=== PATIENT | female | born 2000 | race Caucasian/White ===

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

== ENCOUNTER 2022-07-29 01:25 | Emergency (ER) | payer BC, SELFPAY ==
[2022-07-29 01:30] VITALS: BP 118/74; PULSE 85; RESP 14; TEMP 36.8; O2SAT 100; BMI 23.4
--- NOTE | 2022-07-29 02:14 | CT_ITS ---
INDICATION: syncope EXAMINATION: CT BRAIN - CT Head or Brain W/O Contrast Injection TECHNIQUE: Multiple axial images were obtained of the head without intravenous contrast. A radiation dose optimization technique was used for this scan. IV Contrast dosage and agent: None. COMPARISON: FINDINGS: BRAIN PARENCHYMA: No intra- or extra-axial hemorrhage. No evidence of acute infarct. No intracranial mass or mass effect. There is preservation of the henley/white matter interface. Posterior fossa structures are unremarkable. There is small hypoattenuation lesion in the white matter adjacent to the head of the left caudate nucleus. CSF SPACES: Appropriate for age. No hydrocephalus. Basal cisterns are patent. CALVARIUM, SKULL BASE, PARANASAL SINUSES AND MASTOID AIR CELLS: Clear. No discrete lytic or blastic abnormalities. ORBITS: Both globes, extraocular muscles, optic nerves and retrobulbar fat appear unremarkable. ASPECTS Score for Acute Strokes: 10 CT/Brain/Head without Contrast IMPRESSION: There is small nonspecific hypoattenuation lesion in the white matter adjacent to the head of the left caudate nucleus may represent a microvascular ischemic lesion or an old traumatic lesion. Further evaluation by MRI may be warranted for further characterization. There is no acute intracranial abnormality. There is no intracranial hemorrhage. Electronically Signed: Miguel Arce MD at 3:33 EST ,
--- NOTE | 2022-07-29 02:14 | EKG12_ITS ---
Test Reason : DYSRHYTHMIA Blood Pressure : / mmHG Vent. Rate : 082 BPM Atrial Rate : 082 BPM P-R Int : 126 ms QRS Dur : 074 ms QT Int : 374 ms P-R-T Axes : 063 079 059 degrees QTc Int : 436 ms Normal sinus rhythm Normal ECG Confirmed by AIXA RAYMUNDO, HARDY ([id number]), editor in chief DANIEL VELAZQUEZ ([id number]) on 07/29/2022 1:52:54 PM Referred By: NITHIN Confirmed By:HARDY KRUSE MD
[2022-07-29 02:38] LABS: Absolute Lymphocyte Count 1.23 X10^3/uL (0.83-4.51); Absolute Neutrophil Count 4.8 X10^3/uL (2.0-7.7); Basophil# 0.03 X10^3/uL; Basophil% 0.4 % (0-1); Eosinophil# 0.17 X10^3/uL; Eosinophils% 2.5 % (0-5); Hematocrit 39.7 % (37-47); Hemoglobin 12.6 g/dL (12.0-15.0); Lymphocyte # 1.23 X10^3/ul (0.83-4.51); Lymphocyte % 17.9 % (19-41); Mean Corp Hgb Conc 31.7 g/dL (32-36); Mean Corpuscular Hgb 27.6 pg (27.0-32.0); Mean Corpuscular Volume 87.1 fL (81-99); Monocyte# 0.61 X10^3/uL; Monocyte% 8.9 % (0-10); NRBC Flagged by Analyzer 0 % (0-5); Neutrophil # 4.83 X10^3/uL (2.7-7.7); Platelet Count 280 K/mm3 (150-450); RBC Distribution Width SD 40.9 fl (35.1-43.9); Red Blood Count 4.56 M/mm3 (4.2-5.4); White Blood Count 6.9 K/mm3 (4.4-11.0)
[2022-07-29 02:56] LABS: Anion Gap 8 (5-15); BUN 8 mg/dL (7-18); BUN/Creat Ratio 10.1 RATIO (10-20); Calcium,Total 8.8 mg/dL (8.5-10.1); Chloride 107 mmol/L (98-107); Creatinine, Serum 0.79 mg/dL (0.55-1.02); EST Glomerular Filtration Rate 97 mL/min (>60); Est Glom Filt Rate - Afr Amer 118 mL/min (>60); Estimated Creatinine Clearance 106.34 ml/min; Glucose 99 mg/dL (74-106); Internal QC Validated? YES +Cl - CLEAR BKGD; Magnesium 1.9 mg/dL (1.6-2.6); Potassium 3.6 mmol/L (3.5-5.1); Pregnancy, Serum, hCG Quali. NEGATIVE Negative; Sodium Level 141 mmol/L (136-145)
[2022-07-29] MEDS: 0.9% Normal Saline 1,000 ML 999 ML IV (03:03)
[2022-07-29 03:06] LABS: Lactic Acid 1.1 mmol/L (0.4-1.9)
--- NOTE | 2022-07-29 04:19 | EDS_ITS ---
HPI History of Present Illness Chief Complaint: Seizure Narrative Narrative: Patient is a 21-year-old female with no reported past medical history. She was at work this evening and reportedly was feeling lightheaded and weak. Next thing she remembers is waking up on the EMS cot. Reportedly there was some twitching that occurred when the patient was unresponsive and there was concern for possible seizure. Patient denies any past medical history of seizure disorder or family history of seizure disease. EMS states that there was no postictal phase and patient states when she awoke she knew who she was and where she was at just unsure why she was on EMS cot. She states there has been no excessive stimulant use or illicit drug use. She denies taking any new medications. Her any complaint at this time is lower extremity pain with concern for seizure versus syncope she was brought in for evaluation. [facility] Medical History no medical history Home Medications fluoxetine 40 mg capsule 30 mg PO DAILY 07/29/22 [History Last Taken Unknown] Allergy/AdvReac Type Severity Reaction Status Date / Time No Known Allergies Allergy Verified 07/13/19 14:58 Surgical History no surgical history Social History Smoking Status: Never smoker ROS ROS ED Constitutional Constitutional ED: Denies chills or fever(s) Eyes Eyes: Denies change in vision ENT ENT ED: Denies sore throat Cardiovascular Cardiovascular: Reports other Details: Positive syncope ; Denies chest pain, palpitations or racing heartbeat Respiratory/Chest Respiratory/Chest: Denies cough or dyspnea Gastrointestinal Gastrointestinal: Denies abdominal pain, diarrhea, nausea or vomiting Genitourinary Genitourinary ED: Denies dysuria or hematuria Musculoskeletal Musculoskeletal: Reports other Details: Positive bilateral leg pain ; Denies myalgias Integumentary Denies Abrasions or rash Neurologic Neurologic: Reports other Details: Questionable seizure ; Denies headache(s) or paresthesias Hematologic/Lymphatic Hematologic/Lymphatic: Denies easy bleeding or easy bruising EXAM Physical Exam Const Vital Signs: 07/29/22 01:30 Temperature 98.3 F Temperature Source Oral Pulse Rate 85 Respiratory Rate 14 Blood Pressure 118/74 Blood Pressure Mean 88 Pulse Ox 100 Oxygen Delivery Method Room Air Positive well nourished and well developed General Appearance ED: well developed HEENT Reports moist mucous membranes HEENT Narrative: No tongue or cheek biting noted Head is normocephalic and atraumatic Eyes PERRL and EOMs intact bilaterally Neck supple Neck Narrative: No bony deformity or step-off of the cervical spine no midline pain with palpation Chest Wall palpation of chest normal Resp normal respiratory effort and clear to auscultation bilaterally Cardio regular rate and regular rhythm Rate: other Other Details: Radial pulses are plus 2 out of 4 bilaterally are equal and symmetric GI normal to inspection, nondistended, normoactive bowel sounds, non-tender, non- distended and no masses Auscultation: normoactive bowel sounds Palpation: soft Back/Spine Back/Spine Narrative: No bony deformity or step-off of the thoracic or lumbar spine no midline pain on palpation. No saddle anesthesia. Negative straight leg raise. No clonus or Babinski. Patellar reflexes are plus 2 out of 4 bilaterally are equal and symmetric Extremity normal to inspection Extremity Narrative: Patient has increased pain with active range of motion of both lower extremities but there is no bony deformity or joint effusion noted. Neuro oriented x3, CN's II-XII intact bilaterally and no sensory deficits noted Neuro Narrative: Cranial nerves II through XII are grossly intact there is no focal neurologic deficit. No pronator drift no dysmetria no truncal ataxia. NIH stroke scale score of 0 Sensorium / Orientation: alert Psych mental status grossly normal Skin no rashes or lesions noted Skin Narrative: No abrasions or ecchymosis noted MDM MDM MDM Narrative Medical decision making narrative: Patient presented to the ER awake alert and oriented with normal neurologic exam and no signs of head injury associated with the fall/syncopal event. Patient had no tongue or cheek biting either and therefore was felt that patient most likely under had a syncopal event instead of seizure. Based on this differential however basic blood work was obtained as well as a noncontrast head CT. Labs revealed no clinically significant findings such as acute kidney injury or electrolyte derangement. Lactic acid is normal going against active seizure activity. The patient's head CT questioned a hyperattenuation lesion near the caudate nucleus. It is unsure if this is just summation of shadows or artifact from an old injury or something else and therefore recommends an MRI. I informed the patient of the questionable head CT read and recommended we hold her in the ER until morning and we can perform an MRI to ensure that this questionable head CT finding is benign. Patient states that as the rest of her work-up is normal and that she feels perfectly fine at this time she does not want to stay in the hospital and have this performed. She states she will follow-up with her family doctor and discuss an MRI and an outpatient basis if there is any further concern. The patient is awake alert oriented and competent to make this decision and therefore as she wishes to leave the hospital prior to receiving her MRI she will be discharged at this time Lab Data Attestation: I reviewed the patient's lab results. Labs: Laboratory Results - last 24 hr 07/29/22 07/29/22 07/29/22 02:28 02:28 02:28 WBC 6.9 RBC 4.56 Hgb 12.6 Hct 39.7 MCV 87.1 MCH 27.6 MCHC 31.7 L RDW Std Deviation 40.9 RDW Coeff of Maddie 13.0 Plt Count 280 MPV 9.0 Immature Gran % (Auto) 0.300 Neut % (Auto) 70.0 Lymph % (Auto) 17.9 L [place] % (Auto) 8.9 Eos % (Auto) 2.5 Baso % (Auto) 0.4 Absolute Neuts (auto) 4.8 Absolute Lymphs (auto) 1.23 Nucleated RBC % 0 Sodium 141 Potassium 3.6 Chloride 107 Carbon Dioxide 26.0 Anion Gap 8 BUN 8 Creatinine 0.79 Estim Creat Clear Calc 106.34 Est GFR (MDRD) Af Amer 118 Est GFR (MDRD) Non-Af 97 BUN/Creatinine Ratio 10.1 Glucose 99 Lactic Acid Calcium 8.8 Magnesium 1.9 Serum , Qual NEGATIVE 07/29/22 02:28 WBC RBC Hgb Hct MCV MCH MCHC RDW Std Deviation RDW Coeff of Maddie Plt Count MPV Immature Gran % (Auto) Neut % (Auto) Lymph % (Auto) [place] % (Auto) Eos % (Auto) Baso % (Auto) Absolute Neuts (auto) Absolute Lymphs (auto) Nucleated RBC % Sodium Potassium Chloride Carbon Dioxide Anion Gap BUN Creatinine Estim Creat Clear Calc Est GFR (MDRD) Af Amer Est GFR (MDRD) Non-Af BUN/Creatinine Ratio Glucose Lactic Acid 1.1 Calcium Magnesium Serum , Qual Radiography Diagnostic Testing: Clinical Impression(s) from Imaging Studies Brain CT 07/29/22 02:14 IMPRESSION: There is small nonspecific hypoattenuation lesion in the white matter adjacent to the head of the left caudate nucleus may represent a microvascular ischemic lesion or an old traumatic lesion. Further evaluation by MRI may be warranted for further characterization. There is no acute intracranial abnormality. There is no intracranial hemorrhage. Electronically Signed: Miguel Arce MD at 3:33 EST , Discharge Plan Triage Chief Complaint: Seizure ED Provider: Andrzej Christianson Dx/Rx/DC Orders Clinical Impression: Syncope and collapse, Abnormal CT of the head Instructions: ED Fainting, Uncertain Cause Prescriptions: No Action fluoxetine 40 mg Capsule 30 mg PO DAILY Primary Care Provider: Jose Pastor Referrals: Jose Pastor MD [Primary Care Provider] - Activity Restrictions/Additional Instructions: Please follow-up with your family doctor to discuss possible outpatient MRI as the CAT scan did question a lesion near the caudate nucleus. If you have any worsening of symptoms or further concerns please return to the ER for repeat evaluation Disposition Disposition: Home, Self Care Discharge Date/Time: 07/29/22 05:08
[2022-07-29 04:47] VITALS: O2SAT 98
[2022-07-29 04:50] VITALS: BP 124/68; PULSE 74; RESP 15; O2SAT 97
== END 2022-07-29 05:08 | disposition home or self-care (01) ==
PROVIDERS: Emergency Provider Emergency Medicine; PCP Family Medicine; Visit Provider Emergency Medicine
DX: R55 Syncope and collapse (principal); R93.0 Abnormal findings on diagnostic imaging of skull and head, not elsewhere classified; M79.606 Pain in leg, unspecified; Z79.899 Other long term (current) drug therapy
CPT/HCPCS: 70450; 80048; 83605; 83735; 84703; 85025; 93005; 96360; 96361; 99285; J7030; A4216

== ENCOUNTER 2022-08-06 00:07 | Emergency (ER) | payer BC, SELFPAY ==
[2022-08-06 00:08] VITALS: BP 104/90; PULSE 71; RESP 14; TEMP 36.6; O2SAT 100; BMI 24.0
--- NOTE | 2022-08-06 00:56 | RAD_ITS ---
INDICATION: chest pain EXAMINATION/TECHNIQUE: X-RAY - XR Chest 2 Views COMPARISON: 07/13/2019. FINDINGS: LINES/DEVICES: None. LUNGS: No consolidation. No pneumothorax. MEDIASTINUM: Unremarkable. CARDIAC SILHOUETTE: Not enlarged. BONES AND SOFT TISSUES: No acute abnormalities. RAD/Chest PA and Lateral IMPRESSION: Normal chest x-ray. Electronically Signed: Milvia Nice MD at 1:25 EST ,
--- NOTE | 2022-08-06 00:56 | EKG12_ITS ---
Test Reason : CP Blood Pressure : / mmHG Vent. Rate : 063 BPM Atrial Rate : 063 BPM P-R Int : 134 ms QRS Dur : 076 ms QT Int : 402 ms P-R-T Axes : 041 069 060 degrees QTc Int : 411 ms Normal sinus rhythm Normal ECG Confirmed by AIXA RAYMUNDO, HARDY ([id number]), marketing editor DANIEL VELAZQUEZ ([id number]) on 08/07/2022 12:40:15 PM Referred By: Confirmed By:HARDY KRUSE MD
[2022-08-06 01:05] LABS: Absolute Lymphocyte Count 2.26 X10^3/uL (0.83-4.51); Absolute Neutrophil Count 5.7 X10^3/uL (2.0-7.7); Basophil# 0.04 X10^3/uL; Basophil% 0.4 % (0-1); Eosinophil# 0.24 X10^3/uL; Eosinophils% 2.7 % (0-5); Hematocrit 44.8 % (37-47); Hemoglobin 14.3 g/dL (12.0-15.0); Lymphocyte # 2.26 X10^3/ul (0.83-4.51); Lymphocyte % 25.1 % (19-41); Mean Corp Hgb Conc 31.9 g/dL (32-36); Mean Corpuscular Hgb 27.6 pg (27.0-32.0); Mean Corpuscular Volume 86.5 fL (81-99); Mean Platelet Vol. 9.5 fl (6.2-12.0); Monocyte# 0.71 X10^3/uL; Monocyte% 7.9 % (0-10); NRBC Flagged by Analyzer 0 % (0-5); Neutrophil # 5.74 X10^3/uL (2.7-7.7); Neutrophil % 63.7 % (47-70); Platelet Count 343 K/mm3 (150-450); RBC Distribution Width CV 12.9 % (11.6-14.6); RBC Distribution Width SD 40.5 fl (35.1-43.9); Red Blood Count 5.18 M/mm3 (4.2-5.4)
[2022-08-06 01:17] LABS: D-Dimer Quantitative (DVT/PE) 0.29 FEU/ug/m (0.27-0.49)
[2022-08-06 01:26] LABS: Anion Gap 9 (5-15); BUN 12 mg/dL (7-18); BUN/Creat Ratio 14.7 RATIO (10-20); Calcium,Total 9.7 mg/dL (8.5-10.1); Chloride 105 mmol/L (98-107); Creatinine, Serum 0.82 mg/dL (0.55-1.02); EST Glomerular Filtration Rate 95 mL/min (>60); Est Glom Filt Rate - Afr Amer 114 mL/min (>60); Estimated Creatinine Clearance 98.48 ml/min; Glucose 95 mg/dL (74-106); Magnesium 2.1 mg/dL (1.6-2.6); Potassium 3.9 mmol/L (3.5-5.1); Sodium Level 140 mmol/L (136-145); Troponin-I HS < 3 pg/mL (3.0-54.0)
[2022-08-06 01:45] VITALS: BP 118/69; PULSE 74; RESP 13
--- NOTE | 2022-08-06 02:05 | EX.ED.DYSGE1 ---
HPI History of Present Illness Chief Complaint: Chest Pain Narrative Narrative: Patient is a 21-year-old female who states she went to work this evening and once they are started doing her normal job. She states while she was doing this she had anterior chest pain that made her feel short of breath. She states she was able to sit down and the pain resolved but then she got up and began doing her job once again and the pain returned. She states that there is been no nausea vomiting diaphoresis associated with this. She denies any recent coughing spells or trauma. She denies any recent travel, surgery or history of DVT/PE. She also denies any history of cardiac disease at a young age and she denies any excessive stimulant use or illicit drug use. However with 2 episodes of chest discomfort occurring at work this evening she presents for evaluation [facility] Home Medications fluoxetine 40 mg capsule 30 mg PO DAILY 07/29/22 [History Last Taken Unknown] norethindrone (contraceptive) 0.35 mg tablet 0.35 mg PO DAILY 08/06/22 [History Last Taken Unknown] Allergy/AdvReac Type Severity Reaction Status Date / Time No Known Allergies Allergy Verified 08/06/22 00:13 Social History Smoking Status: Never smoker [facility] ED Constitutional Constitutional ED: Denies chills or fever(s) ENT ENT ED: Denies sore throat Cardiovascular Cardiovascular: Reports chest pain; Denies palpitations or racing heartbeat Respiratory/Chest Respiratory/Chest: Denies cough or dyspnea Gastrointestinal Gastrointestinal: Denies abdominal pain, diarrhea, nausea or vomiting Genitourinary Genitourinary ED: Denies dysuria Musculoskeletal Musculoskeletal: Denies back pain, myalgias or neck pain Integumentary Denies rash Neurologic Neurologic: Denies headache(s) Hematologic/Lymphatic Hematologic/Lymphatic: Denies easy bleeding or easy bruising EXAM Physical Exam Const Vital Signs: 08/06/22 00:08 08/06/22 00:08 08/06/22 01:45 Temperature 97.9 F Temperature Source Temporal Pulse Rate 71 74 Respiratory Rate 14 13 Respiratory Effort Normal Blood Pressure 104/90 H 118/69 Blood Pressure Mean 94 85 Pulse Ox 100 Oxygen Delivery Method Room Air Room Air 08/06/22 02:10 Temperature Temperature Source Pulse Rate 74 Respiratory Rate Respiratory Effort Blood Pressure 112/79 Blood Pressure Mean Pulse Ox 95 Oxygen Delivery Method Positive well nourished and well developed General Appearance ED: well developed HEENT Reports moist mucous membranes Eyes PERRL and EOMs intact bilaterally Neck supple Chest Wall Chest Narrative: No bony deformity or crepitance of the anterior chest wall with there is reproducible pain with palpation that patient states is the same pain she was experiencing at work Resp normal respiratory effort and clear to auscultation bilaterally Cardio regular rate and regular rhythm Rate: other Other Details: Radial pulses are plus 2 out of 4 bilaterally are equal and symmetric GI normal to inspection, nondistended, normoactive bowel sounds, non-tender and non-distended GI Narrative: No voluntary guarding or rigidity no pulsatile mass Auscultation: normoactive bowel sounds Palpation: soft Extremity normal to inspection Extremity Narrative: No asymmetric edema no pitting edema negative Homans' sign bilaterally Neuro oriented x3 and CN's II-XII intact bilaterally Sensorium / Orientation: alert Psych mental status grossly normal Skin no rashes or lesions noted MDM MDM MDM Narrative Medical decision making narrative: Patient presented to the ER with spontaneous resolution of her symptoms and is low risk for DVT/PE as well as cardiac event. However because of the symptoms occurring twice tonight at work I did elect to perform a basic cardiac work-up. Labs revealed no clinically significant findings with normal D-dimer going against blood clot as well as normal troponin going against cardiac event. Patient's EKG also showed no signs of dysrhythmia and chest x-ray revealed no signs of lung pathology as a cause of her symptoms. As patient is low risk for cardiac event or DVT/PE and work-up is negative I feel this is most likely musculoskeletal as it is reproducible in nature. Therefore patient is safe for discharge and can take anti-inflammatories and follow-up on an outpatient basis Lab Data Attestation: I reviewed the patient's lab results. Labs: Laboratory Results - last 24 hr 08/06/22 08/06/22 08/06/22 00:30 00:30 00:30 WBC 9.0 RBC 5.18 Hgb 14.3 Hct 44.8 MCV 86.5 MCH 27.6 MCHC 31.9 L RDW Std Deviation 40.5 RDW Coeff of Maddie 12.9 Plt Count 343 MPV 9.5 Immature Gran % (Auto) 0.200 Neut % (Auto) 63.7 Lymph % (Auto) 25.1 [place] % (Auto) 7.9 Eos % (Auto) 2.7 Baso % (Auto) 0.4 Absolute Neuts (auto) 5.7 Absolute Lymphs (auto) 2.26 Nucleated RBC % 0 D-Dimer Quant (PE/DVT) 0.29 Sodium 140 Potassium 3.9 Chloride 105 Carbon Dioxide 26.0 Anion Gap 9 BUN 12 Creatinine 0.82 Estim Creat Clear Calc 98.48 Est GFR (MDRD) Af Amer 114 Est GFR (MDRD) Non-Af 95 BUN/Creatinine Ratio 14.7 Glucose 95 Calcium 9.7 Magnesium 2.1 Troponin I High Sens < 3 L Radiography Diagnostic Testing: Clinical Impression(s) from Imaging Studies Chest X-Ray 08/06/22 00:56 IMPRESSION: Normal chest x-ray. Electronically Signed: Milvia Nice MD at 1:25 EST , Chest x-ray as interpreted by the emergency medicine physician reveals no acute infiltrate pneumothorax or pleural effusion Discharge Plan Triage Chief Complaint: Chest Pain ED Provider: Andrzej Christianson Dx/Rx/DC Orders Clinical Impression: Chest wall pain Instructions: ED Chest Wall Pain, Costochondritis, ED Chest Wall Strain Prescriptions: No Action fluoxetine 40 mg Capsule 30 mg PO DAILY norethindrone (contraceptive) 0.35 mg tablet 0.35 mg PO DAILY Label Comments: TAKE 1 TABLET BY MOUTH EVERY DAY Stand Alone Forms: Work / School Excuse Primary Care Provider: Jose Pastor Referrals: Jose Pastor MD [Primary Care Provider] - Activity Restrictions/Additional Instructions: Please take anti-inflammatories to help with your chest wall pain and return to the ER should you have any further concerns Disposition Disposition: Home, Self Care Discharge Date/Time: 08/06/22 02:17
[2022-08-06 02:10] VITALS: BP 112/79; PULSE 74; O2SAT 95
== END 2022-08-06 02:17 | disposition home or self-care (01) ==
PROVIDERS: Emergency Provider Emergency Medicine; PCP Family Medicine; Visit Provider Emergency Medicine
DX: R07.89 Other chest pain (principal)
CPT/HCPCS: 71046; 80048; 83735; 84484; 85025; 85379; 93005; 99282

== ENCOUNTER 2023-02-24 18:14 | Emergency (ER) | payer BC, MEDICAID, SELFPAY ==
[2023-02-24 18:15] VITALS: BP 114/72; PULSE 93; RESP 14; TEMP 36.4; O2SAT 100; BMI 24.6
[2023-02-24 19:06] VITALS: BP 110/75; BP 111/68; BP 114/74; PULSE 78; PULSE 80; PULSE 91
--- NOTE | 2023-02-24 19:06 | EKG12_ITS ---
Test Reason : DIZZY Blood Pressure : / mmHG Vent. Rate : 079 BPM Atrial Rate : 079 BPM P-R Int : 134 ms QRS Dur : 076 ms QT Int : 354 ms P-R-T Axes : 031 079 018 degrees QTc Int : 405 ms Normal sinus rhythm Nonspecific T wave abnormality Abnormal ECG Confirmed by WHIT RAYMUNDO, MARGOT ([id number]), assignment editor MIGUEL DAVID ([id number]) on 02/25/2023 1:15:47 PM Referred By: Confirmed By:MARGOT SHERMAN MD
--- NOTE | 2023-02-24 19:06 | EDS_ITS ---
HPI History of Present Illness Chief Complaint: Syncope Narrative Narrative: 22-year-old female who denies significant past medical history except for the fact that she is 6 weeks , G1, P0 presents after syncopal episode at work today. She states that she works at [employer], and was on a machine. She had eaten soup half an hour before her shift started at around 325 pm, almost 4 hours ago. She states that the last thing she remembered was that her friend was standing further on down the line, and she loads the machine, she felt lightheaded but denies any prodromal chest pain or shortness of breath. The next thing she woke up she was on the ground. She had reportedly only had a syncopal episode for few minutes. She denies any vaginal bleeding, abdominal pain, or other symptoms. While she may have struck the right side of her head, she denies any neck pain, and she does not take blood thinners. PFSH PFSH Medical History no medical history Allergy/AdvReac Type Severity Reaction Status Date / Time No Known Allergies Allergy Verified 02/24/23 18:19 Surgical History no surgical history Social History Smoking Status: Never smoker ROS ROS ED ROS Narrative Constitutional: No fever, no chills. HEENT: No sore throat. No neck pain. No loss of vision. No rhinorrhea. Cardiovascular: No chest pain. No palpitations. No pedal edema. Respiratory: No cough, no shortness of breath. Abdominal: No abdominal pain. No nausea. No vomiting. Genitourinary: No dysuria. No hematuria. No vaginal bleeding, no pelvic pain. Musculoskeletal: No myalgias. No arthralgias. Neurologic: No headaches. No dizziness. Positive lightheadedness. Vital signs resulted in syncopal episode for a few minutes. Skin: No rash. No change in color. Psychiatric: No depression. No anxiety. EXAM Physical Exam Narrative Exam Narrative: Afebrile. Vital signs noted. HEENT: Normocephalic. Atraumatic. PERRL, EOMI. Neck soft and supple. No point tenderness or step off. Cardiovascular: Regular rate and rhythm. No murmurs, rubs, or gallops appreciated. Respiratory: No tachypnea. Lungs clear to auscultation bilaterally. Gastrointestinal: Abdomen soft, nontender, with normoactive bowel sounds. No rebound or guarding. Neurological: Awake. Alert. Oriented x3. Nonfocal, nonlateralizing. Able to raise arms above head without difficulty. Skin: No rash. Normal color. No pallor. Musculoskeletal: No pedal edema. Full range of motion extremities. Const Vital Signs: 02/24/23 18:15 02/24/23 18:20 02/24/23 19:06 Temperature 97.5 F L Temperature Source Temporal Pulse Rate 93 Pulse Rate [Lying] 80 Pulse Rate [Sitting (for 1 minute prior to obtaining)] 78 Pulse Rate [Standing (for 1 minute prior to obtaining)] 91 Respiratory Rate 14 Respiratory Effort Normal Non-Labored Respiratory Pattern Normal Blood Pressure 114/72 Blood Pressure [Lying] 111/68 Blood Pressure [Sitting (for 1 minute prior to obtaining)] 114/74 Blood Pressure [Standing (for 1 minute prior to obtaining)] 110/75 Blood Pressure Mean 86 Blood Pressure Mean [Lying] 82 Blood Pressure Mean [Sitting (for 1 minute prior to obtaining)] 87 Blood Pressure Mean [Standing (for 1 minute prior to obtaining)] 86 Pulse Ox 100 Oxygen Delivery Method Room Air 02/24/23 20:15 Temperature Temperature Source Pulse Rate 107 H Pulse Rate [Lying] Pulse Rate [Sitting (for 1 minute prior to obtaining)] Pulse Rate [Standing (for 1 minute prior to obtaining)] Respiratory Rate 19 H Respiratory Effort Respiratory Pattern Blood Pressure 124/69 H Blood Pressure [Lying] Blood Pressure [Sitting (for 1 minute prior to obtaining)] Blood Pressure [Standing (for 1 minute prior to obtaining)] Blood Pressure Mean 87 Blood Pressure Mean [Lying] Blood Pressure Mean [Sitting (for 1 minute prior to obtaining)] Blood Pressure Mean [Standing (for 1 minute prior to obtaining)] Pulse Ox 100 Oxygen Delivery Method Room Air MDM MDM MDM Narrative Medical decision making narrative: Concern is for vasovagal syncope versus intravascular volume depletion. She may have had transient hypoglycemia as well. Comprehensive work-up was pursued in the form of laboratory work and EKG. Orthostatics will be obtained and she will be bolused normal saline. I do not feel CT imaging of the brain or neck is indicated as I have low concern for intracranial hemorrhage based on her normal neurological examination. I do not feel that the radiation exposure is worth the risk to her unborn fetus. EKG was obtained and interpreted by myself independently as normal sinus rhythm at 79 bpm without ectopy or acute ST changes. No STEMI. QTc normal at 405. Reviewed her laboratory work from today. WBC count normal at 10.5 with hemoglobin normal at 14.0, hematocrit 42.9, platelet count normal at 335. CMP shows sodium normal at 136 with potassium 3.7, chloride normal at 104. BUN normal at 8 and creatinine 0.76. AST is normal at 22 with ALT normal at 32. Urinalysis is negative for infection. It is a contaminated specimen with 5-10 squamous epithelial cells, and I do not feel antibiotics are indicated. As she is this can be sent for culture. She did have 150 ketones and her urine which is pointing more towards intravascular volume depletion. RN did report that she had a low blood pressure systolically in the 80s. Afterwards, she was unresponsive for her parents. However, on arrival to the room, she awoke and was tearful. While her heart rate increased while she was crying, after her complete bolus was finished, upon repeat examination at 9:20 PM approximately, she feels well and would like to be discharged. I did review her prior records and she had an unresponsive episode earlier this year. I discussed with the patient and her parents that I do not feel that she requires observation at this time. Through shared decision making, I feel she can be discharged safely home with follow-up. Return instructions to the emergency department were reviewed. She was given a note to be off work today and tomorrow. Patient and parents are agreeable to the plan. Disposition is discharged home in stable condition. History & Record Review Discussion w/independent historian: Patient and Family Additional record(s) reviewed:: Prior ED visit Lab Data Attestation: I reviewed the patient's lab results. Labs: Laboratory Results - last 24 hr 02/24/23 02/24/23 18:03 20:54 WBC 10.5 RBC 4.98 Hgb 14.0 Hct 42.9 MCV 86.1 MCH 28.1 MCHC 32.6 RDW Std Deviation 40.4 RDW Coeff of Maddie 13.1 Plt Count 335 MPV 10.1 Immature Gran % (Auto) 0.300 Neut % (Auto) 72.2 H Lymph % (Auto) 18.7 L [place] % (Auto) 6.9 Eos % (Auto) 1.4 Baso % (Auto) 0.5 Absolute Neuts (auto) 7.6 Absolute Lymphs (auto) 1.97 Nucleated RBC % 0 Sodium 136 Potassium 3.7 Chloride 104 Carbon Dioxide 24.0 Anion Gap 8 BUN 8 Creatinine 0.76 Estim Creat Clear Calc 109.62 Est GFR (MDRD) Af Amer 123 Est GFR (MDRD) Non-Af 102 BUN/Creatinine Ratio 10.5 Glucose 73 L Calcium 9.6 Total Bilirubin 0.40 AST 22 ALT 32 Alkaline Phosphatase 65 Total Protein 8.1 Albumin 4.3 Globulin 3.8 Albumin/Globulin Ratio 1.1 Urine Color Yellow Urine Clarity Clear Urine pH 5.0 Ur Specific [place] 1.020 Urine Protein Negative Urine Glucose (UA) Normal Urine Ketones 150 A* Urine Occult Blood Negative Urine Nitrite Negative Urine Bilirubin Negative Urine Urobilinogen Normal Ur Leukocyte Esterase 100 H Urine RBC 0 SEEN Urine WBC 5-10 SEEN Ur Squamous Epith Cells 5-10 SEEN Urine Bacteria 1+ Urine Mucus 0 SEEN Discharge Plan Triage Chief Complaint: Syncope ED Provider: Frankie Castaneda Dx/Rx/DC Orders Clinical Impression: Syncope and collapse, Vasovagal episode Instructions: ED Hypotension, Orthostatic, ED Fainting, Vagal Reaction, ED Fainting, Uncertain Cause Stand Alone Forms: ED Work / School Excuse Primary Care Provider: Jose Pastor Referrals: Jose Pastor MD [Primary Care Provider] - 1-2 Days if not improving Disposition Disposition: Home, Self Care
[2023-02-24] MEDS: 0.9% Normal Saline (1000mL) 1,000 ML 1000 ML IV (19:12)
[2023-02-24 19:19] LABS: Absolute Lymphocyte Count 1.97 X10^3/uL (0.83-4.51); Absolute Neutrophil Count 7.6 X10^3/uL (2.0-7.7); Basophil# 0.05 X10^3/uL; Basophil% 0.5 % (0-1); Eosinophil# 0.15 X10^3/uL; Eosinophils% 1.4 % (0-5); Hematocrit 42.9 % (37-47); Lymphocyte # 1.97 X10^3/ul (0.83-4.51); Lymphocyte % 18.7 % (19-41); Mean Corp Hgb Conc 32.6 g/dL (32-36); Mean Corpuscular Hgb 28.1 pg (27.0-32.0); Mean Corpuscular Volume 86.1 fL (81-99); Mean Platelet Vol. 10.1 fl (6.2-12.0); Monocyte# 0.72 X10^3/uL; Monocyte% 6.9 % (0-10); NRBC Flagged by Analyzer 0 % (0-5); Neutrophil # 7.59 X10^3/uL (2.7-7.7); Neutrophil % 72.2 % (47-70); Platelet Count 335 K/mm3 (150-450); RBC Distribution Width CV 13.1 % (11.6-14.6); RBC Distribution Width SD 40.4 fl (35.1-43.9); Red Blood Count 4.98 M/mm3 (4.2-5.4); White Blood Count 10.5 K/mm3 (4.4-11.0)
[2023-02-24 19:37] LABS: ALB/GLOB Ratio 1.1 RATIO (0.9-2.4); AST(SGOT) 22 U/L (15-37); Alanine Aminotransfer ALT/SGPT 32 U/L (13-56); Albumin, Serum 4.3 g/dL (3.2-5.0); Alkaline Phosphatase 65 U/L (45-117); Anion Gap 8 (5-15); BUN 8 mg/dL (7-18); BUN/Creat Ratio 10.5 RATIO (10-20); Calcium,Total 9.6 mg/dL (8.5-10.1); Chloride 104 mmol/L (98-107); Creatinine, Serum 0.76 mg/dL (0.55-1.02); EST Glomerular Filtration Rate 102 mL/min (>60); Est Glom Filt Rate - Afr Amer 123 mL/min (>60); Estimated Creatinine Clearance 109.62 ml/min; Globulin 3.8 g/dL (2.2-4.2); Glucose 73 mg/dL (74-106); Potassium 3.7 mmol/L (3.5-5.1); Protein, Total 8.1 g/dL (6.4-8.2); Sodium Level 136 mmol/L (136-145)
[2023-02-24 20:15] VITALS: BP 124/69; PULSE 107; RESP 19; O2SAT 100
[2023-02-24 21:00] LABS: Mucous, Urine 0 SEEN /hpf (<or=2+); Red Blood Cells-Urine 0 SEEN /hpf (0-5)
[2023-02-24 21:01] LABS: Color, Urine Yellow (Yellow); Glucose, Dipstick Normal (Normal); Leukocyte Esterase-Dipstick 100 /ul (Negative); Nitrite-Dipstick Negative (Negative); Occult Blood-Urine Negative /ul (Negative); Protein-Dipstick Negative (Negative); Urine Bilirubin Dipstick Negative (Negative); Urine Clarity Clear (Clear); Urine Urobilinogen Normal (Normal)
[2023-02-24 21:09] LABS: Ketone-Dipstick 150 mg/dl (Negative)
[2023-02-24 21:11] LABS: Bacteria 1+ /hpf (None Seen); Squamous Epithelial Cells - UA 5-10 SEEN /hpf (5-10); White Blood Cells 5-10 SEEN /hpf (0-5)
[2023-02-24 21:19] VITALS: BP 122/69; PULSE 106; RESP 19; O2SAT 100
== END 2023-02-24 21:53 | disposition home or self-care (01) ==
PROVIDERS: Emergency Provider Emergency Medicine; PCP Family Medicine; Visit Provider Emergency Medicine
DX: O99.891 Other specified diseases and conditions complicating pregnancy (principal); R55 Syncope and collapse; Z3A.01 Less than 8 weeks gestation of pregnancy
CPT/HCPCS: 80053; 81001; 85025; 87086; 87088; 93005; 96360; 96361; 99285; J7030

== ENCOUNTER 2023-02-26 19:47 | Emergency (ER) | payer BC, MEDICAID, SELFPAY ==
[2023-02-26 19:48] VITALS: BP 118/84; PULSE 110; RESP 18; TEMP 36.7; O2SAT 98; BMI 23.6
--- NOTE | 2023-02-26 19:51 | EKG12_ITS ---
Test Reason : SYNCOPE Blood Pressure : / mmHG Vent. Rate : 095 BPM Atrial Rate : 095 BPM P-R Int : 118 ms QRS Dur : 080 ms QT Int : 320 ms P-R-T Axes : 040 081 -73 degrees QTc Int : 402 ms Normal sinus rhythm T wave abnormality, consider inferior ischemia T wave abnormality, consider anterolateral ischemia Abnormal ECG Confirmed by WHIT RAYMUNDO, MARGOT ([id number]), news assignment editor MIGUEL DAVID ([id number]) on 03/02/2023 1:55:51 PM Referred By: Confirmed By:MARGOT SHERMAN MD
[2023-02-26 21:47] VITALS: PULSE 90; RESP 16; O2SAT 98
--- NOTE | 2023-02-26 22:44 | EDS_ITS ---
HPI History of Present Illness Chief Complaint: Syncope Informant: patient Narrative Narrative: Patient had a syncopal episode at work. She was seen here 2 days ago for the same thing. Before, she had prodromal lightheadedness only. Today, she states she had a sudden sharp right frontal headache out of nowhere, followed by prodromal lightheadedness and then syncope, waking up on the ground. Compared to before passing out, pain in her neck, mid and low back. She states her toes are little tingly bilaterally but that may be because I have been wearing these work shoes for a while. 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 She is 6 weeks . She tells me she has been having intermittent brief sharp pelvic pains for weeks now, they are not currently there, she has seen her [employer] and had several ultrasounds, the last of which showed heartbeat and an IUP. G1, P0. She denies any history of blood clots in her legs or her lungs, or leg pain or swelling, but states she has been short of breath with exertion/activities lately, she denies any prodromal dyspnea tonight or dyspnea now. No chest discomfort either. No recent illness. States she has been drinking fluids today but not necessarily a lot. PFSH PFS Medical History no medical history no medical history Home Medications NK 02/26/23 [History Last Taken Unknown] Allergy/AdvReac Type Severity Reaction Status Date / Time No Known Allergies Allergy Verified 02/24/23 18:19 Surgical History no surgical history Social History Smoking Status: Never smoker ROS ROS ED Constitutional Constitutional ED: Denies chills or fever(s) Eyes Eyes: Denies change in vision or diplopia ENT ENT ED: Denies rhinorrhea or sore throat Cardiovascular Cardiovascular: Reports as per HPI and syncope; Denies chest pain, leg edema or palpitations Respiratory/Chest Respiratory/Chest: Reports dyspnea on exertion; Denies cough Gastrointestinal Gastrointestinal: Denies abdominal pain, diarrhea, nausea or vomiting Genitourinary Genitourinary ED: Denies dysuria or hematuria Musculoskeletal Musculoskeletal: Reports back pain and neck pain Integumentary Denies abscess or rash Neurologic Neurologic: Reports headache(s) and paresthesias; Denies weakness Psychiatric Psychiatric: Denies anxiety or suicidal thoughts EXAM Physical Exam Const Vital Signs: 02/26/23 19:48 02/26/23 21:47 02/26/23 23:29 Temperature 98.1 F Temperature Source Temporal Pulse Rate 110 H Pulse Rate [Lying] Pulse Rate [Sitting (for 1 minute prior to obtaining)] Pulse Rate [Standing (for 1 minute prior to obtaining)] Respiratory Rate 18 Respiratory Effort Normal Non-Labored Respiratory Pattern Normal Blood Pressure 118/84 H Blood Pressure [Lying] Blood Pressure [Sitting (for 1 minute prior to obtaining)] Blood Pressure [Standing (for 1 minute prior to obtaining)] Blood Pressure Mean 95 Blood Pressure Mean [Lying] Blood Pressure Mean [Sitting (for 1 minute prior to obtaining)] Blood Pressure Mean [Standing (for 1 minute prior to obtaining)] Pulse Ox 98 100 Oxygen Delivery Method Room Air Room Air 02/26/23 23:29 02/26/23 21:47 02/26/23 23:00 Temperature Temperature Source Pulse Rate 90 88 Pulse Rate [Lying] 85 Pulse Rate [Sitting (for 1 minute prior to obtaining)] 85 Pulse Rate [Standing (for 1 minute prior to obtaining)] 95 Respiratory Rate 16 Respiratory Effort Respiratory Pattern Blood Pressure Blood Pressure [Lying] 120/65 Blood Pressure [Sitting (for 1 minute prior to obtaining)] 121/74 H Blood Pressure [Standing (for 1 minute prior to obtaining)] 131/78 H Blood Pressure Mean Blood Pressure Mean [Lying] 83 Blood Pressure Mean [Sitting (for 1 minute prior to obtaining)] 89 Blood Pressure Mean [Standing (for 1 minute prior to obtaining)] 95 Pulse Ox 98 Oxygen Delivery Method Room Air 02/27/23 00:23 02/27/23 02:00 Temperature Temperature Source Pulse Rate 80 85 Pulse Rate [Lying] Pulse Rate [Sitting (for 1 minute prior to obtaining)] Pulse Rate [Standing (for 1 minute prior to obtaining)] Respiratory Rate 16 17 Respiratory Effort Respiratory Pattern Blood Pressure 124/85 H 115/74 Blood Pressure [Lying] Blood Pressure [Sitting (for 1 minute prior to obtaining)] Blood Pressure [Standing (for 1 minute prior to obtaining)] Blood Pressure Mean 98 87 Blood Pressure Mean [Lying] Blood Pressure Mean [Sitting (for 1 minute prior to obtaining)] Blood Pressure Mean [Standing (for 1 minute prior to obtaining)] Pulse Ox 98 97 Oxygen Delivery Method Room Air Room Air Positive well nourished and well developed General Appearance ED: well developed and NAD HEENT Reports moist mucous membranes normocephalic and atraumatic Eyes PERRL and EOMs intact bilaterally Neck Neck Narrative: C-collar in place. Mild tenderness lower C-spine, no step-off or obvious signs of trauma. Chest Wall inspection of chest normal and palpation of chest normal Resp normal respiratory effort and clear to auscultation bilaterally Cardio regular rate, regular rhythm and no murmurs Rate: tachycardic GI non-tender and non-distended Auscultation: normoactive bowel sounds Palpation: soft Back/Spine no CVA tenderness Back/Spine Narrative: Diffuse tenderness from the mid back on down. This includes the midline and bilateral paraspinal areas worse on the right paraspinal musculature. No outward signs of trauma to the skin. Upper back nontender. General Back: other FROM but with pain Extremity normal to inspection Extremity Narrative: Full range of motion throughout all 4 extremities without pain or injury General Extremety ED: Negative for edema, pulses abnormal or tenderness General Extremity: Negative for edema or pulses abnormal Neuro oriented x3, CN's II-XII intact bilaterally and no sensory deficits noted Sensorium / Orientation: awake and alert Motor Exam: strength 5/5 throughout Psych mental status grossly normal Skin no rashes or lesions noted and no wounds MDM MDM MDM Narrative Medical decision making narrative: Patient had lab work 2 days ago I do not think we need to repeat that but I am getting a troponin. Her EKG shows sinus rhythm 95, no acute injury pattern but she does have some T wave inversions inferolaterally. This is different compared with her old EKG 2 days ago. 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 Since we are performing CTA of the head and the chest, I ordered a CT of the neck to evaluate for injuries, but this was obtained as a CTA as well because according to the radiology technicians, this would lessen the amount of radiation exposure to the patient, and the fetus although we were shielding her throughout the procedure. And I discussed with the patient avoiding x- rays/imaging of the mid and low back given my low suspicion of fracture here, given that it would increase radiation exposure to the fetus she was amenable to that and receiving Tylenol which was given. Well and her back was feeling much better, she was lying down comfortably, she did not have any other syncopal or cardiac events or other symptoms while being monitored in the ER for 5 or 6 hours. I was concerned about her EKG changes. I did a second troponin measurement, which is negative at 3 as well. Mother states there is some type of cardiac problem in the family but it is not well- defined. Given that this patient has had 2 syncopal episodes now and with EKG changes compared with 2 days ago, I think she will probably need an echocardiogram, and we paged cardiology to discuss whether she should be admitted or discharged with outpatient evaluation and follow-up. We paged cardiology for several hours and never received an answer. The family appreciates this but would prefer to go home. They understand the risks. I am not discharging AGAINST MEDICAL ADVICE, but referring to cardiology and to her PCP to potentially expedite getting an outpatient echocardiogram ordered. Patient sees PCP in [place], [employer] at the [facility] who goes to [place], so I will give her our cardiology practice to follow-up with her she may follow-up with [facility]. History & Record Review Additional record(s) reviewed:: Prior ED visit and Prior labs Lab Data Attestation: I reviewed the patient's lab results. Labs: Laboratory Results - last 24 hr 02/26/23 02/27/23 23:05 01:03 Troponin I High Sens < 3 L 3 Radiography Diagnostic Testing: Clinical Impression(s) from Imaging Studies Chest CTA 02/26/23 23:10 IMPRESSION: Normal CTA chest examination, without a demonstrated pulmonary embolism or arterial dissection. Electronically Signed: Miguel Arce MD at 0:25 EDT , Head/Neck CTA 02/26/23 23:10 IMPRESSION: Negative CT Brain, CTA Carotid, and CTA Brain. Electronically Signed: Miguel Arce MD at 23:50 EDT , Rhythm Strip Rhythm Strip: Sinus Rhythm Rate: 95 Ectopy: None EKG Initial EKG: Attestation: I personally reviewed and interpreted this EKG as follows: Interpretation: Sinus Rhythm, No Acute Injury Pattern and Inverted T-Waves (Inferior and precordial lateral leads V3-6) Prior EKG tracings: available for review Prior: Changed (Compared to 2 days ago 02/24/2023) Discharge Plan Triage Chief Complaint: Syncope ED Provider: Shivam Tejeda Dx/Rx/DC Orders Clinical Impression: Syncope and collapse, Acute electrocardiogram changes Instructions: ED Fainting, Uncertain Cause Prescriptions: No Action NK Primary Care Provider: Jose Pastor Referrals: Solo Cisneros MD [Med Staff - Active Staff] - As soon as possible (after obtaining echocardiogram -- call your doctor) Jose Pastor MD [Primary Care Provider] - Disposition Disposition: Home, Self Care
[2023-02-26] MEDS: Acetaminophen 500 MG Tablet 1000 MG PO (22:58)
[2023-02-26 23:00] VITALS: PULSE 88
--- NOTE | 2023-02-26 23:10 | CT_ITS ---
STUDY: CTA CHEST REASON FOR EXAM: Female, 22 years old. dyspnea on exertion, syncope, RADIATION DOSAGE (If Supplied By Facility): CTDIvol = ( 21.41 ) mGy, DLP = ( 2168.95 ) mGycm TECHNIQUE: The examination was performed with the intravenous administration of IV 100mL Isovue-370. Post-processing of the angiographic images was performed, with multiplanar reformation and 3D reconstruction. Individualized dose optimization techniques were used for this CT. COMPARISON: CR Chest Aug 06 2022 FINDINGS: Normal enhancement of the main pulmonary artery and right and left pulmonary arteries. Normal enhancement of the bilateral peripheral pulmonary arteries. There is no demonstrated pulmonary embolism. Normal thoracic aorta and visualized great vessels. There is no demonstrated aortic dissection. Normal heart and pericardium. Normal mediastinum. Normal hilar regions. Normal visualized trachea and bronchi. The lungs are well expanded. Normal pulmonary parenchyma. Normal pleura. Normal chest wall structures. Normal osseous structures. Normal visualized upper abdomen. CT/CTA Chest W/WO Contrast IMPRESSION: Normal CTA chest examination, without a demonstrated pulmonary embolism or arterial dissection. Electronically Signed: Miguel Arce MD at 0:25 EDT ,
--- NOTE | 2023-02-26 23:10 | CT_ITS ---
INDICATION: headache, syncope EXAMINATION: CT BRAIN WITH CONTRAST TECHNIQUE: Noncontrast axial images were obtained of the brain. Subsequently, routine carotid CT angiogram protocol was performed without and with IV contrast. In addition, images were obtained of the [place]. NASCET criteria using the distal ICAs for comparison were used for evaluation of stenoses. 3D reconstructions were reviewed. A radiation dose optimization technique was used for this scan. IV Contrast dosage and agent: IV 100mL Isovue-370 COMPARISON: CT BrainFe 2022 FINDINGS: --CT BRAIN: BRAIN PARENCHYMA: No intra- or extra-axial hemorrhage. No evidence of acute infarct. No intracranial mass or mass effect. There is preservation of the henley/white matter interface. Posterior fossa structures are unremarkable. CSF SPACES: Appropriate for age. No hydrocephalus. Basal cisterns are patent. CALVARIUM, SKULL BASE, PARANASAL SINUSES AND MASTOID AIR CELLS: Clear. No discrete lytic or blastic abnormalities. ASPECTS Score for Acute Strokes: 10 --CTA NECK: AORTIC ARCH AND BRANCHES: Normal anatomy, patent. RIGHT CCA: No occlusion, significant stenosis or dissection. RIGHT ICA: No occlusion, significant stenosis or dissection. LEFT CCA: No occlusion, significant stenosis or dissection. LEFT ICA: No occlusion, significant stenosis or dissection. RIGHT VERTEBRAL ARTERY: No occlusion, significant stenosis or dissection. LEFT VERTEBRAL ARTERY: No occlusion, significant stenosis or dissection. NECK SOFT TISSUES: Unremarkable. --CTA HEAD: --Anterior circulation: ICAs: No significant stenosis at the intracranial/visualized segments. ACAs: No significant stenosis at the visualized segments. ACOM: Present. MCAs: No significant stenosis at the visualized segments. --Posterior circulation: PCOMs: licensed physical therapist assistant: No significant stenosis at the visualized segments. BASILAR ARTERY: No significant stenosis. VERTEBRAL ARTERIES: No significant stenosis at the intradural/visualized segments. No evidence of intracranial aneurysm or vascular malformation. CT/CTA Head AND Neck W/ Contrast IMPRESSION: Negative CT Brain, CTA Carotid, and CTA Brain. Electronically Signed: Miguel Arce MD at 23:50 EDT ,
[2023-02-26 23:29] VITALS: BP 120/65; BP 121/74; BP 131/78; PULSE 85; PULSE 95; O2SAT 100
[2023-02-26 23:30] LABS: Troponin-I HS < 3 pg/mL (3.0-54.0)
--- NOTE | 2023-02-27 00:12 | ED.RN ---
ok to remove c-collar per dr. domínguez.
[2023-02-27 00:23] VITALS: BP 124/85; PULSE 80; RESP 16; O2SAT 98
[2023-02-27 01:33] LABS: Troponin-I HS 3 pg/mL (3.0-54.0)
[2023-02-27 02:00] VITALS: BP 115/74; PULSE 85; RESP 17; O2SAT 97
[2023-02-27 02:37] VITALS: BP 120/72; PULSE 80; RESP 17; O2SAT 97
== END 2023-02-27 02:45 | disposition home or self-care (01) ==
PROVIDERS: Emergency Provider Emergency Medicine; PCP Family Medicine; Visit Provider Emergency Medicine
DX: O26.899 Other specified pregnancy related conditions, unspecified trimester (principal); R55 Syncope and collapse; R10.2 Pelvic and perineal pain; R94.31 Abnormal electrocardiogram [ECG] [EKG]; Z82.49 Family history of ischemic heart disease and other diseases of the circulatory system; Z3A.00 Weeks of gestation of pregnancy not specified
CPT/HCPCS: 70496; 70498; 71275; 84484; 93005; 99285; Q9967; A4216

== ENCOUNTER 2023-03-01 19:50 | Emergency (ER) | payer BC, MEDICAID, SELFPAY ==
[2023-03-01 19:51] VITALS: BP 134/72; PULSE 103; RESP 18; TEMP 35.9; O2SAT 97; BMI 24.5
--- NOTE | 2023-03-01 21:01 | EX.ED.DYSGE1 ---
HPI History of Present Illness Chief Complaint: Syncope Informant: patient and parent Narrative Narrative: Patient is a 22-year-old female G1, P0 currently 7 weeks presenting after another syncopal episode. Patient has had multiple syncopal episodes of the past few weeks has been evaluated multiple times in our emergency room. Most recently she was seen 2 days ago after she developed headache, became lightheaded and then passed out. These all of occurred at work, [employer]. 2 days ago patient had a CTA of her chest as well as her head and neck which was negative. She is scheduled now for an echocardiogram on Wednesday, 2 days from now. Patient notes she had a good day yesterday but she was able to eat and drink throughout the day. Mother notes today she has not ate or drink much. Patient states she is only urinated once. She is feeling more dizzy and lightheaded. She denies any chest pain. She again had headache and was short of breath before the syncopal episode. Patient states that earlier today she tried to eat macaroni and cheese but threw it up but then she later was able to eat chicken so she decided go to work. No other complaints or concerns at this time. She denies any vaginal bleeding or discharge. PFSH PFSH Medical History no medical history Home Medications NK 02/26/23 [History Last Taken Unknown] Allergy/AdvReac Type Severity Reaction Status Date / Time No Known Allergies Allergy Verified 03/01/23 19:53 Surgical History no surgical history Social History Smoking Status: Never smoker ROS ROS ED Constitutional Constitutional ED: Denies chills or fever(s) Eyes Eyes: Reports blurry vision Cardiovascular Cardiovascular: Denies chest pain or palpitations Respiratory/Chest Respiratory/Chest: Reports dyspnea; Denies cough Gastrointestinal Gastrointestinal: Reports nausea and vomiting; Denies abdominal pain Genitourinary Genitourinary ED: Denies dysuria, hematuria or urinary frequency Musculoskeletal Musculoskeletal: Denies arthralgias or myalgias Neurologic Neurologic: Reports headache(s), weakness and other Details: lightheaded , syncope Psychiatric Psychiatric: Denies anxiety or depression EXAM Physical Exam Const Vital Signs: 03/01/23 19:51 03/01/23 19:53 Temperature 96.7 F L Temperature Source Temporal Pulse Rate 103 H Respiratory Rate 18 Respiratory Effort Short of Breath Blood Pressure 134/72 H Blood Pressure Mean 92 Pulse Ox 97 Oxygen Delivery Method Room Air Positive well nourished and well developed General Appearance ED: well developed, NAD and pallor HEENT Reports dry mucous membranes Negative for trauma Mouth ED: Yes dry mucous membranes Mouth: dry mucous membranes Eyes PERRL and EOMs intact bilaterally General Eye ED: Negative for pale conjunctiva Neck supple and no JVD Chest Wall inspection of chest normal and palpation of chest normal Resp normal respiratory effort and clear to auscultation bilaterally Cardio regular rate, regular rhythm and no murmurs GI normal to inspection, nondistended, normoactive bowel sounds, non-tender and non-distended Extremity normal to inspection General Extremety ED: Negative for edema or tenderness General Extremity: Negative for edema Neuro oriented x3 Sensorium / Orientation: alert Motor Exam: general weakness Psych mental status grossly normal Skin no rashes or lesions noted General Skin Exam: pallor MDM MDM MDM Narrative Medical decision making narrative: Patient's evaluated for another syncopal episode. She has multiple ER visits and work-ups for this. Most recently she had a CTA of her head and neck as well as her chest 2 days ago. Patient denies any chest pain. This is exact same story she had 2 days ago. Coincides with her having poor p.o. intake today. I believe that given the fact that she is 7 weeks is why she passed out. She does have an echocardiogram scheduled for 2 days from now she did have nonspecific EKG changes 2 days ago. We will check a troponin but have a very low suspicion for cardiac cause such as ACS or endocarditis. She had a good day yesterday. Repeat labs obtained which are largely normal. Her urine shows 50 ketones and 100 leukocyte esterase. Patient is given 2 L of IV fluids this time. Potassium was mildly low at 3.4 and she is counseled that she needs to also increase her potassium intake. Counseled patient extensively on the importance of keeping up her p.o. intake to try to prevent these episodes. She is given 2 L of fluid in the ER. Anticipate she will be discharged home with outpatient follow-up. Lab Data Attestation: I reviewed the patient's lab results. Labs: Laboratory Results - last 24 hr 03/01/23 03/01/23 22:10 23:43 WBC 10.3 RBC 4.55 Hgb 12.9 Hct 39.0 MCV 85.7 MCH 28.4 MCHC 33.1 RDW Std Deviation 40.2 RDW Coeff of Maddie 13.0 Plt Count 284 MPV 9.3 Immature Gran % (Auto) 0.400 Neut % (Auto) 75.1 H Lymph % (Auto) 15.4 L [place] % (Auto) 7.3 Eos % (Auto) 1.4 Baso % (Auto) 0.4 Absolute Neuts (auto) 7.7 Absolute Lymphs (auto) 1.59 Nucleated RBC % 0 Sodium 138 Potassium 3.4 L Chloride 103 Carbon Dioxide 25.0 Anion Gap 10 BUN 8 Creatinine 0.64 Estim Creat Clear Calc 125.12 Est GFR (MDRD) Af Amer 152 Est GFR (MDRD) Non-Af 125 BUN/Creatinine Ratio 12.6 Glucose 86 Calcium 9.2 Urine Color Yellow Urine Clarity Clear Urine pH 6.0 Ur Specific [place] 1.015 Urine Protein Negative Urine Glucose (UA) Normal Urine Ketones 50 H Urine Occult Blood Negative Urine Nitrite Negative Urine Bilirubin Negative Urine Urobilinogen Normal Ur Leukocyte Esterase 100 H Rhythm Strip Rhythm Strip: Sinus Rhythm Rate: 78 Ectopy: None EKG Initial EKG: Attestation: I personally reviewed and interpreted this EKG as follows: Comments: Normal sinus rhythm at a rate of 78 bpm Normal axis T wave inversions in inferior leads as well as V3 through V6 Compared to prior EKG T wave changes are the same except now there is also subtle T wave inversion lead II Prior EKG tracings: available for review Discharge Plan Triage Chief Complaint: Syncope ED Provider: Jamilah Cowart Dx/Rx/DC Orders Clinical Impression: Syncope and collapse, Hypovolemia Instructions: ED Dehydration (Adult), ED Fainting, Uncertain Cause Prescriptions: No Action NK Primary Care Provider: Jose Pastor Referrals: Jose Pastor MD [Primary Care Provider] - Activity Restrictions/Additional Instructions: Chart view please follow-up as scheduled for your ultrasound of your heart on Wednesday. Please make sure that you are drinking lots of fluids throughout the day to prevent dehydration. Make sure you are eating small frequent meals. Try to eat more carbs if possible as this can also help with morning sickness. Disposition Disposition: Home, Self Care
[2023-03-01 21:51] VITALS: RESP 18
[2023-03-01 22:19] LABS: Absolute Lymphocyte Count 1.59 X10^3/uL (0.83-4.51); Absolute Neutrophil Count 7.7 X10^3/uL (2.0-7.7); Basophil# 0.04 X10^3/uL; Basophil% 0.4 % (0-1); Eosinophil# 0.14 X10^3/uL; Eosinophils% 1.4 % (0-5); Hemoglobin 12.9 g/dL (12.0-15.0); Lymphocyte # 1.59 X10^3/ul (0.83-4.51); Lymphocyte % 15.4 % (19-41); Mean Corp Hgb Conc 33.1 g/dL (32-36); Mean Corpuscular Hgb 28.4 pg (27.0-32.0); Mean Corpuscular Volume 85.7 fL (81-99); Mean Platelet Vol. 9.3 fl (6.2-12.0); Monocyte# 0.75 X10^3/uL; Monocyte% 7.3 % (0-10); NRBC Flagged by Analyzer 0 % (0-5); Neutrophil # 7.74 X10^3/uL (2.7-7.7); Neutrophil % 75.1 % (47-70); Platelet Count 284 K/mm3 (150-450); RBC Distribution Width SD 40.2 fl (35.1-43.9); Red Blood Count 4.55 M/mm3 (4.2-5.4); White Blood Count 10.3 K/mm3 (4.4-11.0)
[2023-03-01 22:31] LABS: Anion Gap 10 (5-15); BUN 8 mg/dL (7-18); BUN/Creat Ratio 12.6 RATIO (10-20); Calcium,Total 9.2 mg/dL (8.5-10.1); Chloride 103 mmol/L (98-107); Creatinine, Serum 0.64 mg/dL (0.55-1.02); EST Glomerular Filtration Rate 125 mL/min (>60); Est Glom Filt Rate - Afr Amer 152 mL/min (>60); Estimated Creatinine Clearance 125.12 ml/min; Glucose 86 mg/dL (74-106); Potassium 3.4 mmol/L (3.5-5.1); Sodium Level 138 mmol/L (136-145)
[2023-03-01 23:47] LABS: Mucous, Urine 0 SEEN /hpf (<or=2+); Red Blood Cells-Urine 0 SEEN /hpf (0-5)
[2023-03-01 23:49] LABS: Color, Urine Yellow (Yellow); Glucose, Dipstick Normal (Normal); Ketone-Dipstick 50 mg/dl (Negative); Leukocyte Esterase-Dipstick 100 /ul (Negative); Nitrite-Dipstick Negative (Negative); Occult Blood-Urine Negative /ul (Negative); Protein-Dipstick Negative (Negative); Specific Gravity, Urine 1.015 (1.002-1.030); Urine Bilirubin Dipstick Negative (Negative); Urine Clarity Clear (Clear); Urine Urobilinogen Normal (Normal)
[2023-03-01 23:51] VITALS: BP 128/77
[2023-03-01] MEDS: 0.9% Normal Saline (1000mL) 1,000 ML 999 ML IV (23:53)
[2023-03-01] MEDS: 0.9% Normal Saline (1000mL) 1,000 ML 1000 ML IV (23:53)
[2023-03-02 00:08] LABS: Bacteria 2+ /hpf (None Seen); Squamous Epithelial Cells - UA 5-10 SEEN /hpf (5-10); White Blood Cells 5-10 SEEN /hpf (0-5)
[2023-03-02 00:31] LABS: Troponin-I HS 3 pg/mL (3.0-54.0)
[2023-03-02 01:07] VITALS: BP 112/74; PULSE 87; RESP 16; O2SAT 99
== END 2023-03-02 01:10 | disposition home or self-care (01) ==
PROVIDERS: Emergency Provider Emergency Medicine; PCP Family Medicine; Visit Provider Emergency Medicine
DX: O99.891 Other specified diseases and conditions complicating pregnancy (principal); R55 Syncope and collapse; O99.281 Endocrine, nutritional and metabolic diseases complicating pregnancy, first trimester; E86.1 Hypovolemia; Z3A.01 Less than 8 weeks gestation of pregnancy
CPT/HCPCS: 36415; 80048; 81001; 84484; 85025; 87086; 87088; 93005; 96360; 99285; J7030